=== PATIENT | male | born 1955 | race Asian ===

== ENCOUNTER 2022-05-27 20:16 | Emergency (ER) | payer SELFPAY ==
[2022-05-27] MEDS ORDERED: SODIUM CHLORIDE 0.9% 1000 ML 1,000 ML IV ONE (22:18)
--- NOTE | 2022-05-27 22:18 | Emergency Department Report ---
ED Dizziness HPI - General Chief Complaint: Weakness Stated Complaint: GENERAL WEAKNESS Time Seen by Provider: 05/27/22 21:29 Source: EMS Mode of arrival: Stretcher Limitations: No Limitations - History of Present Illness Initial Comments: 66 yo M who present with short period of dizziness that he observed this morning. Pt says it lasted until the EMS administered ivf ns treatment to him. He says he has not eating or drinking fluid in the last couples days. When asked while he says he just not feeling like. He denies any nausea and emesis or any other modifying or associated factors. - Related Data Home Medications Medication Instructions Recorded Confirmed Last Taken Bisoprolol/Hctz [Ziac 10-6.25] 05/04/15 05/04/15 05/02/15 Sertraline [Zoloft] 100 mg PO QDAY 05/04/15 05/04/15 05/02/15 Previous Rx's Medication Instructions Recorded Last Taken Type Ondansetron [Zofran Odt] 4 mg PO Q6H PRN #20 tab.rapdis 05/04/15 Unknown Rx traMADoL [Ultram 50 MG tab] 50 mg PO Q6HR PRN #20 tablet 05/04/15 Unknown Rx chlordiazePOXIDE [Librium] 25 mg PO Q8H 10 Days #30 capsule NS 05/28/22 Unknown Rx Allergies Allergy/AdvReac Type Severity Reaction Status Date / Time No Known Allergies Allergy Verified 05/28/22 03:22 ED Review of Systems ROS: Stated complaint: GENERAL WEAKNESS Other details as noted in HPI Comment: All other systems reviewed and negative Cardiovascular: other (dizziness ) Neurological: other (dizziness) ED Past Medical Hx - Past Medical History Previous Medical History?: Yes Hx Hypertension: Yes Hx Diabetes: Yes Hx Liver Disease: Yes (cirrosis) Hx Psychiatric Treatment: Yes (depression) Additional medical history: Alcoholism. Cirrohsis of liver - Surgical History Past Surgical History?: Yes Additional Surgical History: Neck surgery - Social History Smoking Status: Unknown if ever smoked Substance Use Type: Alcohol - Medications Home Medications: Home Medications Medication Instructions Recorded Confirmed Last Taken Type Bisoprolol/Hctz [Ziac 10-6.25] 05/04/15 05/04/15 05/02/15 History Ondansetron [Zofran Odt] 4 mg PO Q6H PRN #20 tab.rapdis 05/04/15 Unknown Rx Sertraline [Zoloft] 100 mg PO QDAY 05/04/15 05/04/15 05/02/15 History traMADoL [Ultram 50 MG tab] 50 mg PO Q6HR PRN #20 tablet 05/04/15 Unknown Rx chlordiazePOXIDE [Librium] 25 mg PO Q8H 10 Days #30 capsule NS 05/28/22 Unknown Rx ED Physical Exam - General Limitations: No Limitations General appearance: alert, in no apparent distress - Head Head exam: Present: normal inspection - Eye Eye exam: Present: normal appearance Pupils: Present: normal accommodation - ENT ENT exam: Present: normal exam, normal orophraynx, mucous membranes dry - Neck Neck exam: Present: normal inspection. Absent: tenderness, full ROM - Respiratory Respiratory exam: Present: normal lung sounds bilaterally. Absent: respiratory distress, accessory muscle use - Cardiovascular Cardiovascular Exam: Present: regular rate, normal rhythm, normal heart sounds - GI/Abdominal GI/Abdominal exam: Present: soft, normal bowel sounds. Absent: distended, tenderness - Extremities Exam Extremities exam: Present: normal inspection, full ROM, normal capillary refill. Absent: tenderness, pedal edema - Back Exam Back exam: Absent: tenderness - Neurological Exam Neurological exam: Present: alert, oriented X3 - Psychiatric Psychiatric exam: Present: normal affect, normal mood - Skin Skin exam: Present: warm, normal color ED Course Vital Signs 05/27/22 05/27/22 05/27/22 20:34 20:37 20:45 Temperature 98.9 F Pulse Rate 104 H 77 99 H Respiratory 18 14 17 Rate Blood Pressure 163/115 164/99 O2 Sat by Pulse 97 99 Oximetry 05/27/22 05/27/22 05/27/22 20:55 21:01 21:15 Temperature 98.4 F Pulse Rate 92 H 94 H 96 H Respiratory 16 13 14 Rate Blood Pressure 164/99 164/99 164/99 O2 Sat by Pulse 97 97 98 Oximetry 05/27/22 05/27/22 05/27/22 21:31 21:45 22:01 Temperature Pulse Rate 101 H 98 H 90 Respiratory 10 L 18 11 L Rate Blood Pressure 164/99 173/97 173/97 O2 Sat by Pulse 97 98 98 Oximetry 05/27/22 05/27/22 05/27/22 22:15 22:31 22:45 Temperature Pulse Rate 92 H 90 91 H Respiratory 18 12 12 Rate Blood Pressure 173/97 173/97 173/97 O2 Sat by Pulse 98 97 98 Oximetry 05/27/22 05/27/22 05/27/22 23:01 23:15 23:31 Temperature Pulse Rate 112 H 102 H 98 H Respiratory 15 24 18 Rate Blood Pressure 166/88 166/88 166/88 O2 Sat by Pulse 99 98 99 Oximetry 05/27/22 05/28/22 08 23:45 00:00 00:15 Temperature Pulse Rate 98 H 94 H 96 H Respiratory 12 12 19 Rate Blood Pressure 166/88 166/88 O2 Sat by Pulse 98 97 99 Oximetry 05/28/22 05/28/22 05/28/22 00:31 00:45 01:00 Temperature Pulse Rate Respiratory 22 18 18 Rate Blood Pressure 167/77 167/77 O2 Sat by Pulse 99 98 98 Oximetry 05/28/22 05/28/22 05/28/22 01:15 01:31 01:45 Temperature Pulse Rate 86 76 Respiratory 23 Rate Blood Pressure 167/77 167/77 167/77 O2 Sat by Pulse 98 98 98 Oximetry 05/28/22 05/28/22 05/28/22 02:01 02:15 02:31 Temperature Pulse Rate 113 H 99 H 98 H Respiratory 25 H 19 25 H Rate Blood Pressure 167/77 167/77 167/77 O2 Sat by Pulse 98 99 100 Oximetry 05/28/22 02:45 Temperature Pulse Rate 116 H Respiratory 24 Rate Blood Pressure 176/108 O2 Sat by Pulse 97 Oximetry - Reevaluation(s) Reevaluation #1: 05/28/22 03:06 Pt's daughter told her bedside nurse that patient has history of alcohol abuse as well-- and reports some generalized shakiness. so EtOH level and UDS ordered-- patient also given valium 5 mg IV x 1 and banana bag for symptomatic relief-- Reevaluation #2: 05/28/22 05:20 pt can be safely discharge home after completing his banana bag -- ED Medical Decision Making - Lab Data Result diagrams: 05/27/22 21:58 - Radiology Data CT head shows no acute intracranial abnormality - Medical Decision Making Brought for concern with dizziness without a fall --this is likely as a result of starvation reported by patient that could potentially led to dehydration and low energy but could not rule out differential such as CVA especially posterior stroke considering the presenting dizziness/vertigo, or symptomatic anemia, myocardial infarction, pulmonary embolism considering his recent long travels, anxiety, and hypothyroidism--in order to rule those out I will go ahead and order routine cardiopulmonary work-up that include troponin, EKG, chest x-ray, BNP, CKMB, and CBC, CMP, Urinalysis and thyroid panel for any correctable infectious process or electrolyte abnormality as a cause. Will also order CT brain for any intracranial abnormality as mentioned above. In the meantime will give ivf ns 1L bolus for hydration as most are dehydrated in the hot weather anyway. Critical care attestation.: If time is entered above; I have spent that time in minutes in the direct care of this critically ill patient, excluding procedure time. ED Disposition Clinical Impression: Dizziness, Alcohol abuse with withdrawal Disposition: HOME / SELF CARE / HOMELESS Is pt being admited?: No Does the pt Need Aspirin: No Condition: Stable Instructions: Alcohol Abuse and Dependence Information, Adult, Alcohol Abuse and Nutrition, Supporting Someone With Substance Use Disorder, Dizziness, [id number] Additional Instructions: Avoid excess alcohol drink to help your overall health Take your new medication Librium to prevent alcohol withdrawal Increase your daily fluid to help your hydration Call and schedule follow-up with your primary doctor in the next 3 to 5 days for progress Please do not hesitate to call or return to emergency room if your symptoms worsen Prescriptions: chlordiazePOXIDE [Librium] 25 mg PO Q8H 10 Days #30 capsule NS Referrals: PRIMARY CARE, [Primary Care Provider] - 3-5 Days Time of Disposition: 05:20
[2022-05-27 22:31] LABS: Basophils # (Auto) 0.1 K/mm3 (0.0-0.1); Basophils % (Auto) 0.9 % (0.0-1.8); Eosinophils # (Auto) 0.1 K/mm3 (0.0-0.4); Eosinophils % (Auto) 1.8 % (0.0-4.3); Hematocrit 38.6 % (35.5-45.6); Lymphocytes # (Auto) 1.7 K/mm3 (1.2-5.4); Mean Corpuscular HGB Conc 34 % (32-34); Mean Corpuscular Volume 102 fl (84-94); Monocytes # (Auto) 0.4 K/mm3 (0.0-0.8); Monocytes % (Auto) 7.5 % (0.0-7.3); Platelet Count 120 K/mm3 (140-440); Red Cell Distribution Width 15.3 % (13.2-15.2)
[2022-05-27 22:42] LABS: INR 1.03 (0.87-1.13); Partial Thromboplastin Time 29.9 Sec. (24.2-36.6)
[2022-05-27 23:04] LABS: Free T4 (Free Thyroxine) 0.96 ng/dL (0.76-1.46)
--- NOTE | 2022-05-28 00:15 | Cat Scan Report ---
CT HEAD WITHOUT CONTRAST INDICATION / CLINICAL INFORMATION: dizziness. TECHNIQUE: All CT scans at this location are performed using CT dose reduction for ALARA by means of automated exposure control. COMPARISON: None available. FINDINGS: BRAIN PARENCHYMA: No acute intracranial hemorrhage. No evidence of recent infarct. No mass effect or midline shift. There is generalized atrophy. VENTRICULAR SYSTEM/EXTRA-AXIAL SPACES: Ventricles are normal for age. No extra-axial fluid collection . ORBITS: Normal as visualized. SKELETAL SYSTEM/SOFT TISSUES: Normal bones and soft tissues. PARANASAL SINUSES/MASTOID AIR CELLS: No significant abnormality. ADDITIONAL FINDINGS: None. IMPRESSION: 1. No acute intracranial abnormality. Signer Name: Paul Sellers MD Signed: 05/28/2022 12:11 AM Workstation Name: [id number]
[2022-05-28] MEDS ORDERED: THIAMINE 100 MG, FOLIC ACID 1 MG, MULTIPLE VITAMIN INJ, ADULT 10 ML in SODIUM CHLORIDE ... IV ONE (02:50)
[2022-05-28] MEDS ORDERED: diazePAM 10 MG/2 ML SYRINGE IV ONE (02:50)
[2022-05-28] MEDS ORDERED: ONDANSETRON 4 MG/2 ML INJ IV ONE (02:52)
[2022-05-28 02:58] LABS: Bacteria,Urine 1+ /HPF (Negative)
[2022-05-28 03:07] LABS: Amphetamine Screen,Urine PRESUMPTIVE NEGATIVE; Benzodiazepines Screen,Urine PRESUMPTIVE NEGATIVE; Cannabinoid Screen,Urine PRESUMPTIVE NEGATIVE; Cocaine Screen,Urine PRESUMPTIVE NEGATIVE; Methadone Screen,Urine PRESUMPTIVE NEGATIVE; Opiate Screen,Urine PRESUMPTIVE NEGATIVE
[2022-05-28 03:10] LABS: Bilirubin,Urine Negative (Negative); Blood,Urine Trace (Negative); Color,Urine Yellow (Yellow)
[2022-05-28 08:02] VITALS: BP 174/78
--- NOTE | 2022-05-28 09:48 | Electrocardiograph Report ---
[facility] Test Date: 2022-05-27 Test Time: 20:37:17 Pat Name: THERESA IRIZARRY Department: Room: Gender: M [employer] Preparer: NURSE : 1955 Requested By: ANA LILIA POSADA Order Number: [id number] Reading MD: Jac Scott Measurements Intervals [place] Rate: 106 P: 64 NC: 182 QRS: 57 QRSD: 76 T: 61 QT: 363 QTc: 483 Interpretive Statements Sinus tachycardia No previous ECG available for comparison Electronically Signed On 05-28-2022 9:47:55 EDT by Jac Scott
== END 2022-05-28 10:20 | disposition home or self-care (01) ==
LOC: ED 20:16
DX: R42 Dizziness and giddiness (principal); F10.139 Alcohol abuse with withdrawal, unspecified; I10 Essential (primary) hypertension; E11.9 Type 2 diabetes mellitus without complications; K76.9 Liver disease, unspecified; F32.A Depression, unspecified; Z79.899 Other long term (current) drug therapy; Y90.9 Presence of alcohol in blood, level not specified
CPT/HCPCS: 36415; 70450; 80307; 81001; 84439; 84443; 84484; 85025; 85610; 85730; 93005; 96361; 96365; 96366; 96375; 99284; J2405; J3360; J3411; J3490; J7030; 80320; 96367; G0480